=== PATIENT | female | born 1960 | race Caucasian/White ===

== ENCOUNTER 2016-09-18 10:01 | Outpatient (CLI) | payer OTHER ==
[2016-09-18 10:18] LABS: BASOPHILS % 0.8 (0.0-1.5); EOSINOPHILS % 2.5 % (0.0-6.8); MEAN CORPUSCULAR HEMOGLOBIN 32.5 pg (28.0-34.0); MONOCYTES % 4.5 % (0.0-11.0); NEUTROPHILS # 2.1 # k/uL (1.4-7.7)
[2016-09-18 10:49] LABS: eGFR (African) > 60; eGFR (Non-African) > 60
== END 2016-09-18 10:02 ==
LOC: LAB 10:01
PROVIDERS: ATTEND Physician Assistant
DX: Z00.00 Encounter for general adult medical examination without abnormal findings (principal)
CPT/HCPCS: 36415; 80053; 80061; 84443; 85025; 88148; G0143

== ENCOUNTER 2016-10-23 14:33 | Outpatient (CLI) | payer OTHER | END 2016-10-23 14:45 | LOC: LABRHC 14:33 | PROVIDERS: ATTEND Physician Assistant | DX: L81.9 Disorder of pigmentation, unspecified (principal) ==

== ENCOUNTER 2018-04-09 06:53 | Outpatient (CLI) | payer OTHER ==
[2018-04-09 07:56] LABS: eGFR (Non-African) > 60
== END 2018-04-09 07:05 ==
LOC: LAB 06:53
PROVIDERS: ATTEND Physician Assistant
DX: Z00.00 Encounter for general adult medical examination without abnormal findings (principal); E78.5 Hyperlipidemia, unspecified
CPT/HCPCS: 36415; 80053; 80061